=== PATIENT | male | born 1985 | race Caucasian/White ===

== ENCOUNTER 2016-12-11 22:12 | Emergency (ER) | payer OTHER | END 2016-12-11 23:58 | disposition home or self-care (01) | LOC: ER1 22:12 | DX: M25.571 Pain in right ankle and joints of right foot (principal) | CPT/HCPCS: 73610; 99283 ==

== ENCOUNTER 2021-07-17 18:28 | Emergency (ER) | payer BC ==
[2021-07-17 19:13] LABS: HEMOGLOBIN 16.1 gm/dl (14.0-17.5); RED BLOOD COUNT 5.22 M/UL (4.20-5.50)
== END 2021-07-17 22:40 | disposition home or self-care (01) ==
LOC: ER1 18:28
PROVIDERS: Preventive Medicine Occupational Medicine
DX: U07.1 COVID-19 (principal)
CPT/HCPCS: 0240U; 71045; 81001; 83605; 83690; 85025; 85652; 86140; 87086; 96374; 99283; J1885